=== PATIENT | female | born 1985 | race Caucasian/White ===

== ENCOUNTER → 2016-03-10 | Outpatient (CLI) | payer SELFPAY ==
--- OUTSIDE RECORDS SUMMARY | 2016-03-10 14:16 | XMS REPORT ---
Author Author HOLLY JUAREZ Organization [employer] Address Unknown Phone Unavailable Care Team Providers Care Insurance Claim Auditor Name Role Phone HOLLY JUAREZ CP Unavailable Allergies, Adverse Reactions, Alerts Substance Reaction Event Type Amoxicillin Info Not Available Drug Allergy Problems Problem Type Condition Code Onset Dates Condition Status Problem Routine general medical examination at health care facility V70.0 Active Problem Lipoma of other skin and subcutaneous tissue 214.1 Active Problem Umbilical hernia without mention of obstruction or gangrene 553.1 Active Problem Hearing loss 389.9 Active Problem Unspecified breast screening V76.10 Active Problem Anxiety 300.00 Active Problem Routine gynecological examination V72.31 Active Problem Acute upper respiratory infections of unspecified site 465.9 Active Problem General counseling for prescription of oral contraceptives V25.01 Active Problem Other acne 706.1 Active Assessment Hearing loss 389.9 Active Assessment Anxiety 300.00 Active Problem Dermatophytosis of the body 110.5 Active Medications Medication Code System Code Instructions Start Date End Date Status Dosage Citalopram Hydrobromide [facility] [address]-84 20 MG Orally Once a day 1 tablet Procedures Procedure Coding System Code Date Office Visit, Est Pt., Level 4 CPT-4 48366 Nov 17, 2014 Vital Signs Date/Time: Nov 17, 2014 Temperature 98.1 F Weight 125.4 lbs Height 64 in BMI 21.52 Index Blood Pressure Diastolic 62 mmHg Blood Pressure Systolic 108 mmHg Cardiac Monitoring Heart Rate 72 bpm Results No Known Results Summary Purpose [employer] Submission
--- NOTE | 2016-03-10 15:17 | Diagnostic Imaging Report ---
INDICATION: Left-sided pelvic pain. TECHNIQUE: Multiple real time lakhani scale sonographic images were obtained of the pelvis transabdominally and endovaginally. CORRELATION STUDY: None. FINDINGS: UTERUS/ENDOMETRIUM: Uterus measures 6.9 x 5.4 x 5.0 cm. The uterus has an unremarkable appearance. The endometrium is normal in thickness measuring 11 mm. RIGHT OVARY: 3.2 x 2.0 x 1.8 cm. Likely physiologic cysts and/or follicles about the right ovary. LEFT OVARY: 3.9 x 3.3 x 3.1 cm. Likely physiologic cysts and/or follicles at the left ovary. Color flow is demonstrated to both ovaries. There is noted a somewhat prominent vein within the left adnexa. No significant free pelvic fluid. IMPRESSION: 1. Mildly prominent vascular structure within the left adnexa. This could be reflective of mild pelvic congestion syndrome. Otherwise, relatively unremarkable pelvic ultrasound evaluation. Dictated by: Dictated on workstation # [id number]
== END ==
LOC: RAD 14:13
PROVIDERS: ATTEND Nurse Practitioner Family
DX: N94.89 Other specified conditions associated with female genital organs and menstrual cycle (principal); R10.2 Pelvic and perineal pain
CPT/HCPCS: 76830; 76856